=== PATIENT | female | born 1940 | race Caucasian/White ===

== ENCOUNTER 2020-05-19 22:55 | Inpatient (IN) ==
[2020-05-19] MEDS ORDERED: HALOPERIDOL LACTATE 5 MG/ML 1 ML VIAL IV STA ×2 (23:20→23:45)
[2020-05-19] MEDS ORDERED: HALOPERIDOL LACTATE 5 MG/ML 1 ML VIAL ONE (23:23)
[2020-05-19] MEDS ORDERED: MULTI-VITAMIN INFUSION 10 ML, THIAMINE HCL 100 MG, FOLIC ACID 1 MG in SODIUM CHLORIDE 0... IV ONE (23:23)
[2020-05-19 23:29] LABS: Basophils # (auto) 0.02 K/uL (0-0.2); Basophils % (auto) 0.2 %; Eosinophils # (auto) 0.02 K/uL (0-0.5); Eosinophils % (auto) 0.2 %; Hematocrit (blood only) 34.9 % (37-47); Hemoglobin 11.7 g/dL (12.0-16.0); Immature Granulocytes # (auto) 0.08 K/uL (0.00-0.02); Immature Granulocytes % (auto) 0.6 %; Lymphocytes # (auto) 1.05 K/uL (1.2-3.4); Lymphocytes % (auto) 8.1 %; Mean Corpuscular Hgb Conc 33.5 g/dL (32-36); Mean Corpuscular Volume 92.3 fL (80-100); Mean Platelet Volume 9.5 fL (7.4-10.4); Monocytes # (auto) 0.77 K/uL (0.11-0.59); Neutrophils # (auto) 10.99 K/uL (1.4-6.5); Neutrophils % (auto) 84.9 %; Platelet Count 301 K/uL (130-400); RDW Coefficient of Variation 14.2 % (11.5-14.5); RDW Standard Deviation 48.7 fL (36.4-46.3); Red Blood Count 3.78 M/uL (4.2-5.4); White Blood Count 12.93 K/uL (4.8-10.8)
[2020-05-19 23:38] LABS: Prothrombin Time 10.5 Seconds (9.0-12.0)
[2020-05-19 23:46] LABS: Albumin Level 3.8 gm/dl (3.4-5.0); BUN Creatinine Ratio 14.5 (10-20); Calcium 9.1 mg/dl (8.5-10.1); Creatinine Clr Calc Pharmacy 28.8 ml/min; Est GFR (African American) 42.4; Est GFR (Non-African American) 36.6; Magnesium 2.2 mg/dl (1.8-2.4); Potassium 4.1 mmol/L (3.5-5.1)
[2020-05-19 23:57] LABS: Albumin Globulin Ratio 1.1 (0.9-2); Bilirubin,Total 0.4 mg/dl (0.2-1); Globulin 3.4 gm/dl (2.5-4.0); Thyroid Stimulating Hormone 0.574 uIu/ml (0.300-4.500); Total Protein 7.2 gm/dl (6.4-8.2)
[2020-05-20] MEDS ORDERED: HALOPERIDOL LACTATE 5 MG/ML 1 ML VIAL IV STA (00:29)
[2020-05-20 00:38] LABS: Appearance Urine Clear (Clear); Bacteria Urine Automated Negative (Negative); Bilirubin Urine Negative (Negative); Blood Urine 2+ (Negative); Color Urine Yellow; Glucose Urine UA Negative (Negative); Ketones Urine Negative (Negative); Leukocyte Esterase Urine Negative (Negative); Nitrite Urine Negative (Negative); Protein Urine 1+ (Negative); RBC Urine Automated 0-4 /hpf (0-4); Urobilinogen Urine Negative (Negative); pH Urine 5.5 (4.5-7.5)
[2020-05-20 01:07] LABS: Troponin I 0.037 ng/ml (0-0.045)
[2020-05-20 01:22] LABS: Amphetamines+Metham, Urine Neg (Neg); Barbiturates, Urine Neg (Neg); Benzodiazepine, Urine Pos (Neg); Cocaine, Urine Neg (Neg); MDMA (Ecstacy), Urine Neg (Neg); Methadone, Urine Neg (Neg); Opiate, Urine Neg (Neg); Phencyclidine, Urine Neg (Neg)
[2020-05-20] MEDS ORDERED: LORazepam 2 MG/4 ML VIAL ONE (02:09)
[2020-05-20] MEDS ORDERED: LORazepam 1.5 MG/3 ML VIAL IV PRN (03:41)
[2020-05-20] MEDS ORDERED: HALOPERIDOL LACTATE 5 MG/ML 1 ML VIAL IM PRN (03:41)
[2020-05-20] MEDS ORDERED: NITROGLYCERIN SL 0.4 MG/TAB TAB SL PRN (03:41)
[2020-05-20] MEDS ORDERED: ONDANSETRON INJ 2 MG/ML 2 ML VIAL IV PRN (03:41)
--- NOTE | 2020-05-20 03:54 | History and Physical Report ---
DATE OF ADMISSION: 05/20/2020 CHIEF COMPLAINT: Altered mental status. HISTORY OF PRESENT ILLNESS: A 79-year-old female with past medical history significant for hypertension, history of non-ST elevated myocardial infarction, diverticulosis, GERD, generalized osteoarthritis, Alzheimer's disease without behavioral disturbance, hx of alcoholism, presents with altered mental status. The patient lives alone. Daughter checks her on a couple of times a week. Last time checked was Wednesday and she was doing fine. She did not find anything abnormal, everything was operations systems specialist but when the son called today phone was going into busy tone, so he asked the neighbors to check her.When neighbors checked her, she was found to be confused and the son went and saw her and he called the daughter that she could come and check on her and she seemed to be somewhat combative. EMS was called in and was brought in here. Last time the neighbor saw her well was last Wednesday. It took four people to hold her down and she received 2 mg IV Ativan en route. In the ER, she was very combative and received 3 doses of 2.5 mg IV Haldol. Currently, somewhat sedated, but she woke up and she says she wants to pee, speech was clear but mostly she was drowsy. Her initial CT of the head was okay. Chest x-ray, no obvious infiltrates seen. She is afebrile and hemodynamically stable. White count was 12.9, creatinine 1.3. Urinalysis negative for any infection. Urine drug screen is negative except for benzos, which she received in en route. Alcohol level is less than 3. As per daughter, she was drinking wine from last April to October, she used to drive herself and buy alcohol, but since November, she did not drink, she is pretty sure because she is not driving anymore and the daughter is only the crap game box person. As per the PCP notes, she was admitted to [facility] around January with a non-ST elevated MO and after that she went to short-term rehab in [facility], at that time she was started on Crestor, metoprolol succinate and losartan. Losartan and Lasix was stopped because of dizziness and low blood pressures and [id number] medications were stopped because she was taking lot of Tums and Pepto-Bismols. She also found with deficiency of thiamine, folic acid which is taking them,As per daughter, there was no recent fever, chills. She has no cough, no nausea, no complaints of any diarrhea. She is eating okay and otherwise she is ambulating okay before this incident happened and her only complaint is that she complaints of low back pain, shoulder pain, headaches and generalized body aches from her arthitis. ALLERGIES: LISINOPRIL, ADHESIVE TAPE, PROZAC, LACTULOSE. PAST MEDICAL HISTORY: As mentioned above. PAST SURGICAL HISTORY: Appendectomy, right carpal tunnel release, excision of the breast lesion, tubal ligation, cataracts of both the eyes, repair of the bladder defect, total abdominal hysterectomy with removal of tubes. MEDICATIONS: Currently the patient is on aspirin 81 mg p.o. daily, celecoxib 200 mg p.o. daily for pain, Aricept 10 mg p.o. daily, folic acid 1 mg p.o. daily, metoprolol succinate 50 mg p.o. daily, omeprazole 20 mg p.o. daily, Crestor 20 mg p.o. daily, vitamin B1 100 mg p.o. daily. FAMILY HISTORY: Significant for mother had blood disorder. Brother had thyroid cancer. Daughter has thyroid cancer. Father had lung cancer. Sister has lung and brain cancer. SOCIAL HISTORY: Currently and lives alone. Smoked for 10 years. Used to drink alcohol in the past as per daughter. Currently, she is not drinking. No drug use. REVIEW OF SYMPTOMS: Could not obtainable as the patient was agitated and got Ativan and Haldol PHYSICAL EXAMINATION: GENERAL: The patient is drowsy but when awake, she is able to move her extremities. VITAL SIGNS: Temperature afebrile, pulse 90, respiratory rate 20, blood pressure 175/92, oxygen 97% on room air. HEENT: Atraumatic. Could not examine the eyes. NECK: Seems supple, no neck masses seen. CARDIOVASCULAR: S1, S2 heard, regular rate and rhythm. RESPIRATORY SYSTEM: Normal AP diameter. No accessory muscle use. No wheezing, no crackles. ABDOMEN: Soft, bowel sounds present. No distention. CENTRAL NERVOUS SYSTEM: Drowsy. Moves extremities. EXTREMITIES: No edema, no erythema seen. LABORATORY DATA: WBC 12.9, hemoglobin 11.7, hematocrit 34.9, platelets 301. PT 13.5, INR 1. Sodium 142, potassium 4.1, chloride 108, bicarbonate 24, BUN 20, creatinine 1.37, serum glucose 105, lactate 1.5, calcium 9.1, magnesium 2.2, total bilirubin 0.4, AST 34, ALT 19, alkaline phosphatase 83, troponin I 0.037. TSH 0.5. Urinalysis, +2 blood, otherwise negative. Toxicology screen positive for benzos. Alcohol level less than 3. CT head, no acute findings seen. Chest x-ray, no obvious infiltrate seen. ASSESSMENT AND PLAN: This is a 79-year-old female who presents with altered mental status, agitation. 1. Altered mental status and agitation: Etiology unclear at this time. No obvious infectious process. Chest x-ray was okay. Urinalysis negative. There is some leukocytosis, but no fever. Lactic acid is normal,. The patient has Alzheimer's dementia, could be delirium, CT of head is okay, but will rule out any central causes with MRI scan. The patient has history of alcoholism, but as per daughter since November she is not drinking, she is no longer driving and her daughter is her only contact. Alcohol level was normal and urine drug screen was also negative, but patient receiving banana bag in the ER. We will continue with IV Ativan p.r.n. and also IV Haldol p.r.n. Follow the MRI scan. We will get ammonia level and ABG levels and consult psych and consult neurology in a.m. We will also do an EEG. 2. History of thiamine and folate deficiency: On p.o. at home. We will place on IV medications. 3. History of non-ST elevated myocardial infarction: We will follow the EKG. Troponin is negative. Will continue home medication of aspirin, Crestor and Toprol-XL. 4. Gastroesophageal reflux disease: Continue omeprazole. 5. Alzheimers' dementia. Continue Aricept. 6. Deep venous thrombosis prophylaxis: Sequential compression devices for now. 7. Disposition: Closely monitor in med/tele. Level 1 full code as per my discussion with the daughter. PT and OT prior to discharge. Social Service to help with discharge planning. [facility]
[2020-05-20] MEDS: D5W AND NSS 1,000 ML IV SCH ×2 (04:39→14:32)
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
--- NOTE | 2020-05-20 07:14 | CT Scan Report ---
HEAD CT NONCONTRAST CT DOSE: 1228.53 mGy.cm HISTORY: AMS, contusion on face TECHNIQUE: Multiaxial CT images of the head were performed without the use of intravenous contrast. A utomated exposure control was utilized for this study. A dose lowering technique was utilized adheri ng to the principles of ALARA. Comparison: None. Findings: The paranasal sinuses and mastoid air cells are clear. The calvarium and skull base are int act. There is no mass, hematoma, midline shift, acute infarct. White matter hypodensity is nonspecifi c but suggestive of microvascular ischemic change. The ventricles and sulci demonstrate mild age-rela sonu involutional changes. Impression: No acute intracranial abnormality. Atrophy and microvascular ischemic changes. ACT 112: Negative or not required by law. Electronically signed by: Marcus Cordero M.D. 05/20/2020 7:13 AM
--- NOTE | 2020-05-20 07:21 | XRay Report ---
XR chest 1V portable CLINICAL HISTORY: weakness dyspnea COMPARISON STUDY: No previous studies for comparison. FINDINGS: The bones soft tissues and hemidiaphragms are normal. The cardiomediastinal silhouette is n ormal. The lungs are clear. The pulmonary vasculature is normal. IMPRESSION: Negative chest. ACT 112: Negative or not required by law. The above report was generated using voice recognition software. It may contain grammatical, syntax or spelling errors. Electronically signed by: Alexander Murguia M.D. 05/20/2020 7:20 AM
[2020-05-20 08:56] LABS: Base Excess ABG 0.8 mEq/L (-9-1.8); HCO3 ABG 24 mmol/L (19-24); PCO2 ABG 35 mmHg (35-46); PO2 ABG 118 mmHg (80-95); pH ABG 7.46 (7.35-7.45)
[2020-05-20 09:00] LABS: Allen Test Pos (Pos)
[2020-05-20] MEDS: THIAMINE HCL 100 MG in SYRINGE 9 ML IV SCH (09:15)
[2020-05-20] MEDS: FOLIC ACID 1 MG in SYRINGE 9.8 ML IV SCH (09:15)
[2020-05-20 09:28] LABS: Basophils # (auto) 0.02 K/uL (0-0.2); Basophils % (auto) 0.3 %; Eosinophils # (auto) 0.17 K/uL (0-0.5); Eosinophils % (auto) 2.2 %; Hematocrit (blood only) 31.7 % (37-47); Hemoglobin 10.4 g/dL (12.0-16.0); Immature Granulocytes # (auto) 0.02 K/uL (0.00-0.02); Immature Granulocytes % (auto) 0.3 %; Lymphocytes # (auto) 1.57 K/uL (1.2-3.4); Lymphocytes % (auto) 19.9 %; Mean Corpuscular Hemoglobin 30.2 pg (25-34); Mean Corpuscular Hgb Conc 32.8 g/dL (32-36); Mean Corpuscular Volume 92.2 fL (80-100); Mean Platelet Volume 9.7 fL (7.4-10.4); Monocytes # (auto) 0.67 K/uL (0.11-0.59); Monocytes % (auto) 8.5 %; Neutrophils # (auto) 5.43 K/uL (1.4-6.5); Neutrophils % (auto) 68.8 %; Platelet Count 260 K/uL (130-400); RDW Coefficient of Variation 14.2 % (11.5-14.5); RDW Standard Deviation 47.7 fL (36.4-46.3); Red Blood Count 3.44 M/uL (4.2-5.4); White Blood Count 7.88 K/uL (4.8-10.8)
[2020-05-20] MEDS: DONEPEZIL HCL 10 MG TAB PO SCH (09:31)
[2020-05-20] MEDS: CEROVITE ADV FORMULA TAB PO SCH (09:31)
[2020-05-20] MEDS: METOPROLOL SUCC 50MG EXT REL TAB PO SCH (09:31)
[2020-05-20] MEDS: ROSUVASTATIN CALCIUM 20 MG TAB PO SCH (09:31)
[2020-05-20] MEDS: PANTOprazole 40 MG TAB PO SCH (09:31)
[2020-05-20 10:26] LABS: BUN Creatinine Ratio 14.7 (10-20); Calcium 8.5 mg/dl (8.5-10.1); Creatinine Clr Calc Pharmacy 40.8 ml/min; Est GFR (African American) 66.9; Est GFR (Non-African American) 57.7; Magnesium 2.1 mg/dl (1.8-2.4); Potassium 3.4 mmol/L (3.5-5.1)
--- NOTE | 2020-05-20 11:30 | Magnetic Resonance Report ---
MR brain wo con HISTORY: AMS/Agitation. etiology? TECHNIQUE: Multiplanar multisequence MRI of the brain was performed without the use of contrast. COMPARISON STUDY: None. FINDINGS: Limited study as the patient could not tolerate the entire procedure. Diffusion images show no evidence for an acute ischemic insult. Findings of generalized atrophy as well as generalized chronic small vessel change of aging. Ventricular system is midline. Internal auditory canals are unremarkable. IMPRESSION: Limited study showing no evidence for an acute ischemic process. Age-related atrophy and chronic smal l vessel change. ACT 112: Negative or not required by law. The above report was generated using voice recognition software. It may contain grammatical, syntax or spelling errors. Electronically signed by: Alexander Murguia M.D. 05/20/2020 11:29 AM
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
--- NOTE | 2020-05-20 14:18 | Electrocardiogram Report ---
Test Reason : Blood Pressure : / mmHG Vent. Rate : 082 BPM Atrial Rate : 082 BPM P-R Int : 186 ms QRS Dur : 076 ms QT Int : 394 ms P-R-T Axes : 066 034 057 degrees QTc Int : 460 ms Normal sinus rhythm Normal ECG No previous ECGs available Confirmed by Gume Moffett ([id number]) on 05/20/2020 2:18:19 PM Referred By: REFERRED SELF Confirmed By:Ken Moffett
--- NOTE | 2020-05-20 17:29 | Hospitalist Progress Note ---
Date of Service May 20, 2020 Assessment & Plan (1) Altered mental status: 1. Altered mental status and agitation metabolic encephalopathy hx Alzheimer's dementia, could be delirium, CT of head no acute change Right shoulder/right hip pain Ordered for x-ray of shoulder right hip and pelvis And is a poor historian, will need orthopod consult if fracture noted on extremities 2. History of thiamine and folate deficiency: ordered for replacement 3. History of non-ST elevated myocardial infarction: no acute coronary issues Troponin is negative. continue home medication of aspirin, Crestor and Toprol-XL. 4. Gastroesophageal reflux disease: Continue omeprazole. 5. Alzheimers' dementia. Continue Aricept. CODE STATUS: Full code Disposition: Pending Admission and Anticipated Discharge Date Admission Date: May 20, 2020 Subjective More awake and alert, oriented to person only No agitation or combativeness noted Complains of right shoulder pain, right hip pain worse with minimal movement Does not recall any fall or trauma Will order for x-ray of right hip and right shoulder to rule out any fracture Continue fall precaution Review of Systems Review of Systems: All systems reviewed & are unremarkable except as noted in HPI & below Musculoskeletal: + deformity (Is on movement of right shoulder with protrusion of bone noted ) Right shoulder/right hip pain Physical Exam Constitutional: WD/WN, vitals as above + ill appearing; no acute distress Eyes: PERRL, conjunctivae normal, anicteric sclerae ENMT: external ear and nose normal, oropharynx normal Neck: trachea midline, no thyromegaly Respiratory: normal respiratory effort, lungs clear to auscultation Cardiovascular: RRR, no murmur, no edema Gastrointestinal (Abdomen): Percussion/Palpation: + abdomen tender and abdomen soft Musculoskeletal: Pain deformity on right shoulder, severe pain on right hip with minimal movement Neurologic: PERRL, EOMI, accommodation nl, no face palsy, no dysarthria Psychiatric: Orientation: alert Oriented to person only Results & Data Results & Data ([facility]) Vital Signs (Past 12 Hours) Vital Signs Temp Pulse Pulse Resp BP Pulse Ox 05/20/20 15:31 74 05/20/20 11:08 72 18 133/68 97 05/20/20 07:36 71 05/20/20 07:10 36.7 C 72 19 171/84 H 100 (1) Altered mental status Altered mental status type: delirium Qualified Code(s): R41.0 - Disorientation, unspecified
--- NOTE | 2020-05-20 18:07 | Consultation Report ---
DATE OF CONSULTATION: 05/20/2020 This is a 79-year-old female. The consult was requested by Dr. Pichardo. CHIEF COMPLAINT: Altered mental status. HISTORY OF PRESENT ILLNESS: This is a 79-year-old woman with reported history of mild dementia on Aricept 10 mg daily as well as a history of hypertension, NSTEMI and a history of prior alcoholism on thiamine as well as folic acid, admitted to the hospital yesterday for altered mental status. The patient is currently a very poor historian and very hard of hearing, so the history of present illness is limited. On chart review, the patient lives alone and is checked on several times during the week by her daughter. She was last checked on Wednesday and seemed to be doing fine. The neighbors checked on her yesterday when she was found to be confused and agitated and somewhat combative at times. EMS was called and the patient was brought in. She did receive several doses of Ativan en route as well as several doses of Haldol for agitation. Workup in the ER was rather unremarkable, specifically for any signs of an infectious process or other metabolic etiology. The patient was admitted for further evaluation. Neurology was consulted due to the altered mental status. ALLERGIES: ALLERGIC TO LISINOPRIL, ADHESIVE TAPE, PROZAC AND LACTULOSE. PAST MEDICAL HISTORY: Alzheimer's dementia, hypertension, myocardial infarction, diverticulosis, generalized osteoarthritis, and gastroesophageal reflux disease. She also has a history of alcoholism, currently reported to be in remission. HOME MEDICATIONS: Includes Celebrex, donepezil 10 mg daily, folic acid 1 mg daily, metoprolol 50 mg daily, omeprazole 20 mg daily, Crestor 20 mg daily, and thiamine 100 mg daily. PAST SURGICAL HISTORY: She had an appendectomy, right carpal tunnel release surgery, excision of a breast lesion, tubal ligation, cataracts in both eyes, repair of a bladder defect, total abdominal hysterectomy with removal of tubes. FAMILY HISTORY: Her mother had bipolar mood disorder. Her brother had thyroid cancer. Her daughter had thyroid cancer. Her father had lung cancer. Sister had lung cancer as well as brain cancer. SOCIAL HISTORY: Reportedly, she is and lives alone. She is a former smoker, prior history of alcohol abuse, currently in remission. REVIEW OF SYSTEMS: Unable to obtain due to patient's current encephalopathy. PHYSICAL EXAMINATION: GENERAL: The patient appears chronically ill and is sleeping upon entering the room. She appears in no distress. VITAL SIGNS: Blood pressure 133/68, pulse of 74, respiratory rate is 18, temperature is 36.7, O2 sat 97% on room air. HEENT: Her head is atraumatic. Her eyes are midline and the conjunctiva did not appear injected. Her trachea is midline. NECK: Supple. CARDIOVASCULAR: Pulses appear regular. LUNGS: Respiratory rate is nonlabored. No cough noted. ABDOMEN: Soft and nondistended. SKIN: There was no rash or lesions noted. EXTREMITIES: There was no edema in both legs. NEUROLOGIC: The patient is lethargic and profoundly hard of hearing, wearing hearing aids. Her eyes are midline. Her extraocular muscles are intact. There is no nystagmus noticed. Her pupils were symmetric and reactive. She blinked to threat on confrontation. Her face was symmetric and her tongue was midline. Her speech was soft and nonfluent. Her speech was mildly dysarthric. She was following simple commands such as hold up your arms, stick out your tongue, how old are you. She was oriented to her age. Disoriented to place and time. She is moving all 4 extremities against gravity, although not comprehending for formal muscle strength testing. There was no tremor or myoclonic jerks noted. Her sensation was intact to noxious stimuli. She was able to cross midline. Gait examination was deferred due to altered mental status. DIAGNOSTIC TESTING: Labs WBC 7.88, hemoglobin 10.4, platelet count is 260. INR is 1.0. Sodium is 143, potassium 3.4, chloride 113, BUN is 14, creatinine 0.94. Lactate is 1.5, calcium 8.5, magnesium 2.1. Liver enzymes were normal. Ammonia was less than 10. Troponin was 0.037. TSH was normal. Urine showed 1+ protein, 2+ blood, few epithelial cells and negative for bacteria. Urine drug screen was positive for benzodiazepines. Her urine ethanol level was less than 3. IMAGING: She had an MRI of the brain which was limited due to patient motion, although did not show any evidence of an acute ischemic stroke. Age-related atrophy and chronic small vessel ischemic changes. Head CT noncontrast showed no acute intracranial abnormality, atrophy and microvascular ischemic changes. Chest x-ray was a negative chest examination. ASSESSMENT AND PLAN: A 79-year-old woman with a past medical history significant for dementia, presumed of the Alzheimer's type dementia, on Aricept 10 mg daily as well as prior history of alcohol abuse disorder on folic acid and thiamine, admitted with suspected progression of her Alzheimer dementia versus hyperactive delirium which would be supported by her nonfocal neurological examination, as well as her lab work, which does not show any signs of infectious etiology, as well as her recent MRI brain which, although limited did not show any evidence of an acute ischemic stroke. I would recommend and agree with continuing thiamine and folic acid given her prior history of chronic alcohol abuse disorder. It is not unreasonable to continue Aricept 10 mg daily. In regards to agitation or hyperactive delirium in the setting of dementia, Seroquel 25 mg twice a day or Depakote 250 mg twice daily, may be helpful for agitation. Otherwise, I would strongly encourage avoiding benzodiazepines due to paradoxical reaction or often agitation. Otherwise, I agree with psychiatric consultation for further recommendations in regards to mood stabilizing medications. PT, OT for rehabilitation needs. Otherwise, Neurology will sign off for now. Please consult me with any further questions or concerns.
[2020-05-20] MEDS ORDERED: QUETIAPINE FUMARATE 25 MG TABLET PO PRN (18:37)
--- NOTE | 2020-05-20 21:01 | XRay Report ---
SINGLE VIEW PELVIS; 2 VIEWS RIGHT HIP CLINICAL HISTORY: Atraumatic right hip pain. FINDINGS: An AP view of the pelvis with AP and frog-leg views of the right hip are obtained. No prior studies are available for comparison at the time of dictation. The skeletal structures are osteopeni c. There is no radiographic evidence of fracture involving the hips or bony pelvis. Mild degenerative joint space narrowing is seen in both hips. Degenerative sclerosis is noted in the sacroiliac joints and pubic symphysis. Lumbosacral spondylosis is partially visualized. The overlying soft tissues are normal as imaged. Numerous phleboliths are seen in the pelvis. IMPRESSION: 1. No acute bony abnormality is seen involving the hips or pelvis. 2. Osteopenia and degenerative change as above. Electronically signed by: Hemant Paula M.D. 05/20/2020 9:00 PM
--- NOTE | 2020-05-20 21:03 | XRay Report ---
RIGHT SHOULDER 3 VIEWS CLINICAL HISTORY: Right shoulder pain. FINDINGS: 3 views of the right shoulder are obtained. No prior studies are available for comparison a t the time of dictation. The skeletal structures are osteopenic. No fracture or dislocation is identi fied. Productive degenerative change is seen at the acromioclavicular joint. Advanced osteoarthritic change is seen the glenohumeral articulation. Superior subluxation of the humeral head suggests chron ic rotator cuff injury. Soft tissue edema and a bulge is seen superior to the acromioclavicular joint . The visualized right lung parenchyma appears clear. IMPRESSION: 1. No acute bony abnormality is identified. 2. Osteopenia and degenerative change as above. 3. Soft tissue edema and a bulge is seen at superior to the AC joint. Clinical correlation will be re quired. Electronically signed by: Hemant Paula M.D. 05/20/2020 9:02 PM
[2020-05-20] MEDS: HydrALAZINE HCL 20 MG/ML VIAL IV PRN (21:17)
[2020-05-20] MEDS: ACETAMINOPHEN 325 MG TAB PO PRN (22:49)
[2020-05-21] MEDS: FOLIC ACID 1 MG in SYRINGE 9.8 ML IV SCH (08:53)
[2020-05-21] MEDS: THIAMINE HCL 100 MG in SYRINGE 9 ML IV SCH (08:53)
[2020-05-21] MEDS: PANTOprazole 40 MG TAB PO SCH (08:54)
[2020-05-21] MEDS: CEROVITE ADV FORMULA TAB PO SCH (08:54)
[2020-05-21] MEDS: DONEPEZIL HCL 10 MG TAB PO SCH (08:54)
[2020-05-21] MEDS: ROSUVASTATIN CALCIUM 20 MG TAB PO SCH (08:54)
[2020-05-21] MEDS: METOPROLOL SUCC 50MG EXT REL TAB PO SCH (08:54)
[2020-05-21 11:47] LABS: BUN Creatinine Ratio 9.8 (10-20); Calcium 8.6 mg/dl (8.5-10.1); Creatinine Clr Calc Pharmacy 43.8 ml/min; Est GFR (African American) 74.5; Est GFR (Non-African American) 64.3; Potassium 4.1 mmol/L (3.5-5.1)
--- NOTE | 2020-05-21 15:07 | Electroencephalogram ---
EEG Procedure Note Date of Service May 21, 2020 Start / End Times Start Time: 08:24 End Time: 08:[address] Calhoun History a 79-year-old woman with seizure. EEG performed for evaluation of epileptiform activity. Home Medication List Home Medications Medication Instructions Recorded Confirmed Type celecoxib 200 mg PO DAILY 05/19/20 05/20/20 History donepezil 10 mg PO DAILY 05/19/20 05/20/20 History metoprolol succinate 50 mg PO DAILY 05/19/20 05/20/20 History omeprazole 20 mg PO DAILY 05/19/20 05/20/20 History folic acid 1 mg PO DAILY 05/20/20 05/20/20 History rosuvastatin 20 mg PO DAILY 05/20/20 05/20/20 History thiamine HCl (vitamin B1) 100 mg PO DAILY 05/20/20 05/20/20 History Inpatient Medication List Acetaminophen (Tylenol) 650 mg PO Q4H PRN PRN Reason: Pain or Fever Stop: 06/19/20 03:40 Last Admin: 05/20/20 22:49 Dose: 650 mg Documented by: [id number] Donepezil HCl (Aricept) 10 mg PO DAILY [facility] Stop: 06/19/20 08:59 Last Admin: 05/21/20 08:54 Dose: 10 mg Documented by: [id number] Admin: 05/20/20 09:31 Dose: Not Given Documented by: [id number] Hydralazine HCl (Hydralazine Hcl) 5 mg IV Q6H PRN PRN Reason: Hypertension Stop: 06/19/20 20:45 Last Admin: 05/20/20 21:17 Dose: 5 mg Documented by: [id number] Metoprolol Succinate (Toprol Xl) 50 mg PO DAILY [facility] Stop: 06/19/20 08:59 Last Admin: 05/21/20 08:54 Dose: 50 mg Documented by: [id number] Admin: 05/20/20 09:31 Dose: Not Given Documented by: [id number] Multivitamins/Minerals (Multivitamin W/ Minerals Tab) 1 tab PO QAM [facility] Stop: 06/19/20 08:59 Last Admin: 05/21/20 08:54 Dose: 1 tab Documented by: [id number] Admin: 05/20/20 09:31 Dose: Not Given Documented by: [id number] Pantoprazole Sodium (Protonix) 40 mg PO DAILY [facility] Stop: 06/19/20 08:59 Last Admin: 05/21/20 08:54 Dose: 40 mg Documented by: [id number] Admin: 05/20/20 09:31 Dose: Not Given Documented by: [id number] Rosuvastatin Calcium (Crestor) 20 mg PO DAILY [facility] Stop: 06/19/20 08:59 Last Admin: 05/21/20 08:54 Dose: 20 mg Documented by: [id number] Admin: 05/20/20 09:31 Dose: Not Given Documented by: [id number] Discontinued Medications Haloperidol Lactate (Haldol) 2.5 mg IV NOW STA Stop: 05/19/20 23:21 Last Admin: 05/19/20 23:25 Dose: 2.5 mg Documented by: [id number] Haloperidol Lactate (Haldol) Confirm Administered Dose 5 mg .ROUTE .STK-MED ONE Stop: 05/19/20 23:24 Last Admin: 05/20/20 01:03 Dose: Not Given Documented by: [id number] Haloperidol Lactate (Haldol) 2.5 mg IV NOW STA Stop: 05/19/20 23:46 Last Admin: 05/20/20 00:01 Dose: 2.5 mg Documented by: [id number] Haloperidol Lactate (Haldol) 2.5 mg IV NOW STA Stop: 05/20/20 00:30 Last Admin: 05/20/20 02:13 Dose: 2.5 mg Documented by: [id number] Multivitamins 10 ml/ Thiamine HCl 100 mg/ Folic Acid 1 mg/Sodium Chloride 1,011.2 mls @ 1,011.2 mls/hr IV .Q1H ONE Stop: 05/20/20 00:22 Last Infusion: 05/20/20 01:12 Dose: 0 mls/hr Documented by: [id number] Admin: 05/20/20 00:08 Dose: 1,011.2 mls/hr Documented by: [id number] Dextrose/Sodium Chloride (D5w And Nss) 1,000 mls @ 100 mls/hr IV .Q10H [facility] Stop: 06/19/20 03:40 Last Infusion: 05/20/20 18:39 Dose: 0 mls/hr Documented by: [id number] Admin: 05/20/20 14:32 Dose: 100 mls/hr Documented by: [id number] Infusion: 05/20/20 14:32 Dose: 100 mls/hr Documented by: [id number] Admin: 05/20/20 04:39 Dose: 100 mls/hr Documented by: [id number] Thiamine HCl 100 mg/ Syringe 10 mls @ 2 mls/min IV QAM [facility] Stop: 06/19/20 08:59 Last Admin: 05/21/20 08:53 Dose: 2 mls/min Documented by: [id number] Admin: 05/20/20 09:15 Dose: 2 mls/min Documented by: [id number] Folic Acid 1 mg/ Syringe 10 mls @ 5 mls/min IV QAM [facility] Stop: 06/19/20 08:59 Last Admin: 05/21/20 08:53 Dose: 5 mls/min Documented by: [id number] Admin: 05/20/20 09:15 Dose: 5 mls/min Documented by: [id number] Lorazepam (Ativan) Confirm Administered Dose 2 mg .ROUTE .[employer] ONE Stop: 05/20/20 02:10 Last Increment: 05/20/20 02:14 Dose: 1.5 mg Documented by: [id number] Description This is a 21 electrode EEG with a single channel dedicated to limited EKG. The electrodes were placed in accordance with the International 10-20 system. REPORT: At the onset of the EEG the patient is awake. The background is symmetric. The posterior dominant rhythm is 7 Hz. There is a normal anterior to posterior gradient with low amplitude beta activity in the frontal head regions. Drowsiness is characterized by increased theta activity with intermixed delta activity. There are periods of intermixed myogenic artifact from patient head motion. Photic stimulation does not induce any additional abnormalities. No stage 2 sleep transients are seen. IMPRESSION: This is an abnormal awake and drowsy routine EEG due to mild background slowing suggestive of a mild nonspecific encephalopathy. No electrographic seizures or epileptiform discharges are recorded.
--- NOTE | 2020-05-21 17:43 | Hospitalist Progress Note ---
Date of Service May 21, 2020 Assessment & Plan (1) Altered mental status: Altered mental status and agitation metabolic encephalopathy in the setting of dehydration, acute renal failure, low potassium awake and alert today not combative or agitated Dehydration corrected with IV fluids kidney function returned to baseline Discussed over phone with daughter, patient lives at home independently, Family has not noted any cognitive decline Patient went to [employer] with her daughter, last Wednesday 2 days later patient was admitted with acute confusion, dehydration Expecting mental status gradually to improved to baseline after dehydration is corrected Continue to monitor Appreciate input from psychiatry and neurology- Right shoulder/right hip pain x-ray of shoulder right hip and pelvis: Moderate DJD Daughter updated patient had diagnosis of arthritis which has been chronic ongoing Received physical therapy as an outpatient History of thiamine and folic deficiency Continue oral supplements Gastroesophageal reflux disease: Continue omeprazole. Alzheimers' dementia. Continue Aricept. CODE STATUS: Full code Disposition: Patient lives alone, was independent in her ADLs, Daughter checks on her to 2-3 times a week/does her groceries For PT and OT evaluation Daughter is open for rehab if significant functional decline noted Service following for discharge planning Admission and Anticipated Discharge Date Admission Date: May 20, 2020 Subjective awake and alert today 1:1 sitter needed as pt tried to climb out of bed , high fall risk no combativeness or agitation very hard of hearing unable to follow command says her right hip and shoulder pain is bothering her and always did when asked how she was managing to walk at home while being alone she started to talk about her Late , how they traveled , did hiking aware that she is in hospital does not recall why she came to hospital vials stable no fever or chills Review of Systems Review of Systems: All systems reviewed & are unremarkable except as noted in HPI & below Physical Exam Constitutional: WD/WN, vitals as above + ill appearing; no acute distress Eyes: PERRL, conjunctivae normal, anicteric sclerae ENMT: external ear and nose normal, oropharynx normal Neck: trachea midline, no thyromegaly Respiratory: normal respiratory effort, lungs clear to auscultation Cardiovascular: RRR, no murmur, no edema Gastrointestinal (Abdomen): Percussion/Palpation: abdomen soft Neurologic: PERRL, EOMI, accommodation nl, no face palsy, no dysarthria (very hard of hearing , makes it difficult to communicate) Psychiatric: Orientation: alert, oriented to person and oriented to place Results & Data Results & Data ([facility]) Vital Signs (Past 12 Hours) Vital Signs Temp Pulse Pulse Resp BP Pulse Ox 05/21/20 14:39 37.3 C 70 19 163/92 H 97 05/21/20 11:21 37.1 C 77 18 164/95 H 97 05/21/20 11:18 37.2 C 72 18 148/83 H 95 05/21/20 07:25 81 05/21/20 07:00 37.1 C 91 H 18 151/75 H 95 (1) Altered mental status Altered mental status type: delirium Qualified Code(s): R41.0 - Disorientation, unspecified
[2020-05-22 01:20] LABS: 7-Aminoclonaz, Confirm NEGATIVE ng/mL (<25); Hydro-Alp Ur, GC/MS NEGATIVE ng/mL (<25); Hydroxyethylflurazepam, Conf NEGATIVE ng/mL (<50); Hydroxymidazolam Ur, GC/MS 324 ng/mL (<50); Hydroxytriazolam NEGATIVE ng/mL (<50); Lorazepam, Ur GC/MS 93 ng/mL (<50); Nordiazepam, Confirm NEGATIVE ng/mL (<50); Oxazepam Ur, GC/MS NEGATIVE ng/mL (<50); Temazepam, Confirm NEGATIVE ng/mL (<50)
[2020-05-22] MEDS: FOLIC ACID 1 MG TAB PO SCH (09:41)
[2020-05-22] MEDS: CEROVITE ADV FORMULA TAB PO SCH (09:42)
[2020-05-22] MEDS: ROSUVASTATIN CALCIUM 20 MG TAB PO SCH (09:42)
[2020-05-22] MEDS: METOPROLOL SUCC 50MG EXT REL TAB PO SCH (09:42)
[2020-05-22] MEDS: DONEPEZIL HCL 10 MG TAB PO SCH (09:42)
[2020-05-22] MEDS: THIAMINE HCL 100 MG TAB PO SCH (09:42)
[2020-05-22] MEDS: PANTOprazole 40 MG TAB PO SCH (09:43)
--- NOTE | 2020-05-22 10:46 | Communication Note ---
Date of Service: May 22, 2020 Numerous attempts were made to gather collateral information from patient's daughter regarding any psychiatric history or significant mood changes which may correlate with patient's altered mental status on admission. Several voicemails were left. On 05/22/2020, our psychiatric nurse liaison was able to speak with the patient's daughter (Jenifer). Please see psychiatric liaison's note for additional details. Daughter did report that the change observed in her mother was rather acute. She does state there has been a noticeable change in the patient's mood related to the of the patient's 12 years ago, but that there was no significant observed changed in mood prior to patient's hospital presentation. Pt does have a reported history of alcohol dependence/abuse as well, but has reportedly been sober since October 2019. Jenifer denied concern for increased depression/anxiety, and no previous signs of symptoms of psychosis. Upon review of this information and given the sudden onset in MS change, it seems less likely that patient's presentation is directly related to a primary psychiatric diagnosis such as depression with psychotic features. Review of patient's chart indicates that patient has been improving with regard to mental status and there are no recently documented concerns related to agitation/combative behavior. Pt has not required prn medication for behavioral concerns since her initial presentation. Agree with hospitalist impression that AMS and agitation are most consistent with metabolic encephalopathy in the setting of dehydration and acute renal failure - with contributing factors of dementia, advanced age, history of alcohol abuse, and other medical conditions. No additional psychiatric recommendations at this time. Please reach out to our service with any additional questions or updates.
--- NOTE | 2020-05-22 17:30 | Hospitalist Progress Note ---
Date of Service May 22, 2020 Assessment & Plan (1) Altered mental status: Present o admission with confusion and agitation Mostly due to metabolic encephalopathy in the setting of dehydration, acute renal failure CT head showed no acute intracranial abnormality. MRI brain showed no evidence for an acute ischemic process. Received IV hydration Neuro consulted recommended to continue thiamine and folic acid No further neuro testing Psych consulted Symptoms less likely to be related with a primary psychiatric disorder as per psych No additional psychiatric recommendations at this time. Will avoid any Benzo Resolved Right shoulder/right hip pain x-ray of shoulder right hip and pelvis: Moderate DJD Daughter updated patient had diagnosis of arthritis which has been chronic ongoing Received physical therapy as an outpatient History of thiamine and folic deficiency Continue oral supplements Gastroesophageal reflux disease: Continue omeprazole. Alzheimers' dementia. Continue Aricept. CODE STATUS: Full code Disposition PT recommended inpatient rehab Waiting for placement to rehab Admission and Anticipated Discharge Date Admission Date: May 20, 2020 Subjective Pt was seen and examined Lying in bed with no distress with daughter at bedside Daughter said that pt mental status is back to normal Pt denies any chest pain, palpitation, dizziness and SOB Physical Exam Physical Exam: General- No acute distress Head- atraumatic Eyes- PERRL, EOMI, ENT- Decrease hearing function Neck- supple, no JVD Lungs- clear to auscultation Heart- regular rhythm; no murmur Abdomen- normal bowel sounds, soft, nontender Extremities- no calf tenderness Neuro- alert, oriented x 3; PERRL, EOMI; no facial palsy; no dysarthria Skin- warm & dry Results & Data Results & [facility] Vital Signs (Past 12 Hours) Vital Signs Temp Pulse Resp BP BP Pulse Ox 05/22/20 15:51 36.6 C 61 18 161/90 H 97 05/22/20 07:19 37.3 C 68 18 125/83 93 (1) Altered mental status Altered mental status type: delirium Qualified Code(s): R41.0 - Disorientation, unspecified
[2020-05-23] MEDS: HydrALAZINE HCL 20 MG/ML VIAL IV PRN (00:25)
[2020-05-23] MEDS: PANTOprazole 40 MG TAB PO SCH (07:24)
[2020-05-23] MEDS: METOPROLOL SUCC 50MG EXT REL TAB PO SCH (07:25)
[2020-05-23] MEDS: ROSUVASTATIN CALCIUM 20 MG TAB PO SCH (07:25)
[2020-05-23] MEDS: CEROVITE ADV FORMULA TAB PO SCH (07:26)
[2020-05-23] MEDS: THIAMINE HCL 100 MG TAB PO SCH (07:26)
[2020-05-23] MEDS: FOLIC ACID 1 MG TAB PO SCH (07:26)
[2020-05-23] MEDS: DONEPEZIL HCL 10 MG TAB PO SCH (07:26)
--- NOTE | 2020-05-23 19:45 | Hospitalist Progress Note ---
Date of Service May 23, 2020 Assessment & Plan (1) Altered mental status: Present o admission with confusion and agitation Mostly due to metabolic encephalopathy in the setting of dehydration, acute renal failure CT head showed no acute intracranial abnormality. MRI brain showed no evidence for an acute ischemic process. Received IV hydration Neuro consulted recommended to continue thiamine and folic acid No further neuro testing Psych consulted Symptoms less likely to be related with a primary psychiatric disorder as per psych No additional psychiatric recommendations at this time. Will avoid any Benzo Resolved Right shoulder/right hip pain x-ray of shoulder right hip and pelvis: Moderate DJD Daughter updated patient had diagnosis of arthritis which has been chronic ongoing Received physical therapy as an outpatient History of thiamine and folic deficiency Continue oral supplements Gastroesophageal reflux disease: Continue omeprazole. Alzheimers' dementia. Continue Aricept. CODE STATUS: Full code Disposition PT recommended inpatient rehab Waiting for placement to rehab Admission and Anticipated Discharge Date Admission Date: May 20, 2020 Subjective Pt was seen and examined Lying in bed with no distress Pt said that she feels much better She said that she does have some tenderness around her hips and lower back area She is able to converse and make sense I spoke to daughter over phone this morning and was concern about NPH Reassuring pt that patient mental status back to normal and CT head showed no evidence of ventricles enlargement, so is less likely to be NPH since pt back to normal without any procedure Denies any chest pain, palpitation, dizziness and SOB Physical Exam Physical Exam: General- No acute distress Head- atraumatic Eyes- PERRL, EOMI, ENT- Decrease hearing function Neck- supple, no JVD Lungs- clear to auscultation Heart- regular rhythm; no murmur Abdomen- normal bowel sounds, soft, nontender Extremities- no calf tenderness Neuro- alert, oriented x 3; PERRL, EOMI; no facial palsy; no dysarthria Skin- warm & dry Results & Data Results & Data ([facility]) Vital Signs (Past 12 Hours) Vital Signs Temp Pulse Resp BP BP Pulse Ox 05/23/20 19:19 37 C 75 18 151/91 H 97 05/23/20 15:51 36.9 C 72 18 124/89 97 (1) Altered mental status Altered mental status type: delirium Qualified Code(s): R41.0 - Disorie ntation, unspecified
[2020-05-24] MEDS: CEROVITE ADV FORMULA TAB PO SCH (08:14)
[2020-05-24] MEDS: ROSUVASTATIN CALCIUM 20 MG TAB PO SCH (08:14)
[2020-05-24] MEDS: PANTOprazole 40 MG TAB PO SCH (08:14)
[2020-05-24] MEDS: METOPROLOL SUCC 50MG EXT REL TAB PO SCH (08:14)
[2020-05-24] MEDS: DONEPEZIL HCL 10 MG TAB PO SCH (08:14)
[2020-05-24] MEDS: THIAMINE HCL 100 MG TAB PO SCH (08:14)
[2020-05-24] MEDS: FOLIC ACID 1 MG TAB PO SCH (08:14)
[2020-05-24] MEDS ORDERED: LIDOCAINE 4% CREAM 15 GM TUBE EXT PRN (18:46)
--- NOTE | 2020-05-24 18:46 | Hospitalist Progress Note ---
Date of Service May 24, 2020 Assessment & Plan (1) Altered mental status: Present o admission with confusion and agitation Mostly due to metabolic encephalopathy in the setting of dehydration, acute renal failure CT head showed no acute intracranial abnormality. MRI brain showed no evidence for an acute ischemic process. Received IV hydration Neuro consulted recommended to continue thiamine and folic acid No further neuro testing Psych consulted Symptoms less likely to be related with a primary psychiatric disorder as per psych No additional psychiatric recommendations at this time. Continue allie avoid any Benzo Resolved Right shoulder/right hip pain x-ray of shoulder right hip and pelvis: Moderate DJD Daughter updated patient had diagnosis of arthritis which has been chronic ongoing Received physical therapy as an outpatient History of thiamine and folic deficiency Continue oral supplements Gastroesophageal reflux disease: Continue omeprazole. Alzheimers' dementia. Continue Aricept. CODE STATUS: Full code Disposition PT recommended inpatient rehab Waiting for placement to rehab Admission and Anticipated Discharge Date Admission Date: May 20, 2020 Subjective Pt was seen and examined Lying in bed with no distress Pt said that pain a little better today Denies any chest pain, palpitation and SOB Physical Exam Physical Exam: General- No acute distress Head- atraumatic Eyes- PERRL, EOMI, ENT- Decrease hearing function Neck- supple, no JVD Lungs- clear to auscultation Heart- regular rhythm; no murmur Abdomen- normal bowel sounds, soft, nontender Extremities- no calf tenderness Neuro- alert, oriented x 3; PERRL, EOMI; no facial palsy; no dysarthria Skin- warm & dry Results & Data Results & Data ([facility]) Vital Signs (Past 12 Hours) Vital Signs Temp Pulse Resp BP BP Pulse Ox 05/24/20 15:47 36.8 C 63 18 119/76 96 05/24/20 07:00 36.9 C 84 16 147/84 H 96 (1) Altered mental status Altered mental status type: delirium Qualified Code(s): R41.0 - Disorientation, unspecified
[2020-05-25] MEDS: DONEPEZIL HCL 10 MG TAB PO SCH (08:37)
[2020-05-25] MEDS: FOLIC ACID 1 MG TAB PO SCH (08:37)
[2020-05-25] MEDS: THIAMINE HCL 100 MG TAB PO SCH (08:37)
[2020-05-25] MEDS: ROSUVASTATIN CALCIUM 20 MG TAB PO SCH (08:37)
[2020-05-25] MEDS: CEROVITE ADV FORMULA TAB PO SCH (08:37)
[2020-05-25] MEDS: METOPROLOL SUCC 50MG EXT REL TAB PO SCH (08:38)
[2020-05-25] MEDS: PANTOprazole 40 MG TAB PO SCH (08:38)
--- NOTE | 2020-05-25 19:09 | Hospitalist Progress Note ---
Date of Service May 25, 2020 Assessment & Plan (1) Altered mental status: Present o admission with confusion and agitation Mostly due to metabolic encephalopathy in the setting of dehydration, acute renal failure CT head showed no acute intracranial abnormality. MRI brain showed no evidence for an acute ischemic process. Received IV hydration Neuro consulted recommended to continue thiamine and folic acid No further neuro testing Psych consulted Symptoms less likely to be related with a primary psychiatric disorder as per psych No additional psychiatric recommendations at this time. Continue allie avoid any Benzo Resolved HTN BP fluctuated Continue metoprolol 50mg daily Continue monitor BP Right shoulder/right hip pain x-ray of shoulder right hip and pelvis: Moderate DJD Daughter updated patient had diagnosis of arthritis which has been chronic ongoing Received physical therapy as an outpatient History of thiamine and folic deficiency Continue oral supplements Gastroesophageal reflux disease: Continue omeprazole. Alzheimers' dementia. Continue Aricept. CODE STATUS: Full code Disposition PT recommended inpatient rehab Waiting for placement to rehab Admission and Anticipated Discharge Date Admission Date: May 20, 2020 Subjective Pt was seen and examined Lying in bed with no distress watching TV Pt said that the Lidocaine cream helps a little She said that has a good appetite Denies any chest pain, palpitation, dizziness and SOB Physical Exam Physical Exam: General- No acute distress Head- atraumatic Eyes- PERRL, EOMI, ENT- Decrease hearing function Neck- supple, no JVD Lungs- clear to auscultation Heart- regular rhythm; no murmur Abdomen- normal bowel sounds, soft, nontender Extremities- no calf tenderness Neuro- alert, oriented x 3; PERRL, EOMI; no facial palsy; no dysarthria Skin- warm & dry (1) Altered mental status Altered mental status type: delirium Qualified Code(s): R41.0 - Disorientation, unspecified
[2020-05-26] MEDS: DONEPEZIL HCL 10 MG TAB PO SCH (08:04)
[2020-05-26] MEDS: THIAMINE HCL 100 MG TAB PO SCH (08:04)
[2020-05-26] MEDS: PANTOprazole 40 MG TAB PO SCH (08:04)
[2020-05-26] MEDS: METOPROLOL SUCC 50MG EXT REL TAB PO SCH (08:04)
[2020-05-26] MEDS: ROSUVASTATIN CALCIUM 20 MG TAB PO SCH (08:04)
[2020-05-26] MEDS: CEROVITE ADV FORMULA TAB PO SCH (08:04)
[2020-05-26] MEDS: FOLIC ACID 1 MG TAB PO SCH (08:04)
--- NOTE | 2020-05-26 16:00 | Hospitalist Progress Note ---
Date of Service May 26, 2020 Assessment & Plan (1) Altered mental status: Present o admission with confusion and agitation Mostly due to metabolic encephalopathy in the setting of dehydration, acute renal failure CT head showed no acute intracranial abnormality. MRI brain showed no evidence for an acute ischemic process. Received IV hydration Neuro consulted recommended to continue thiamine and folic acid No further neuro testing Psych consulted Symptoms less likely to be related with a primary psychiatric disorder as per psych No additional psychiatric recommendations at this time. Continue allie avoid any Benzo Resolved HTN BP stable Continue metoprolol 50mg daily Continue monitor BP Right shoulder Right hip pain x-ray of shoulder right hip and pelvis: Moderate DJD Daughter updated patient had diagnosis of arthritis which has been chronic ongoing Received physical therapy as an outpatient History of thiamine and folic deficiency Continue oral supplements Gastroesophageal reflux disease: Continue omeprazole. Alzheimers' dementia. Continue Aricept. CODE STATUS: Full code Disposition PT recommended inpatient rehab Waiting for placement to rehab Admission and Anticipated Discharge Date Admission Date: May 20, 2020 Subjective Pt was seen and examined Lying in bed with no distress Pt said that she feels oK Denies any new complaint Physical Exam Physical Exam: General- No acute distress Head- atraumatic Eyes- PERRL, EOMI, ENT- Decrease hearing function Neck- supple, no JVD Lungs- clear to auscultation Heart- regular rhythm; no murmur Abdomen- normal bowel sounds, soft, nontender Extremities- no calf tenderness Neuro- alert, oriented x 3; PERRL, EOMI; no facial palsy; no dysarthria Skin- warm & dry Results & Data Results & Data ([facility]) Vital Signs (Past 12 Hours) Vital Signs Temp Pulse Resp BP Pulse Ox 05/26/20 15:00 36.7 C 66 16 113/73 96 05/26/20 07:00 36.8 C 66 18 135/62 98 (1) Altered mental status Altered mental status type: delirium Qualified Code(s): R41.0 - Disorientation, unspecified
[2020-05-27] MEDS: PANTOprazole 40 MG TAB PO SCH (08:05)
[2020-05-27] MEDS: DONEPEZIL HCL 10 MG TAB PO SCH (08:05)
[2020-05-27] MEDS: FOLIC ACID 1 MG TAB PO SCH (08:05)
[2020-05-27] MEDS: METOPROLOL SUCC 50MG EXT REL TAB PO SCH (08:05)
[2020-05-27] MEDS: ROSUVASTATIN CALCIUM 20 MG TAB PO SCH (08:06)
[2020-05-27] MEDS: CEROVITE ADV FORMULA TAB PO SCH (08:06)
[2020-05-27] MEDS: THIAMINE HCL 100 MG TAB PO SCH (08:06)
[2020-05-27] MEDS: ACETAMINOPHEN 325 MG TAB PO PRN (12:14)
--- NOTE | 2020-05-27 18:41 | Hospitalist Progress Note ---
Date of Service May 27, 2020 Assessment & Plan (1) Altered mental status: Present o admission with confusion and agitation Mostly due to metabolic encephalopathy in the setting of dehydration, acute renal failure CT head showed no acute intracranial abnormality. MRI brain showed no evidence for an acute ischemic process. Received IV hydration Neuro consulted recommended to continue thiamine and folic acid No further neuro testing Psych consulted Symptoms less likely to be related with a primary psychiatric disorder as per psych No additional psychiatric recommendations at this time. Continue allie avoid any Benzo Resolved HTN BP stable Continue metoprolol 50mg daily Continue monitor BP Right shoulder Right hip pain x-ray of shoulder right hip and pelvis: Moderate DJD Daughter updated patient had diagnosis of arthritis which has been chronic ongoing Received physical therapy as an outpatient History of thiamine and folic deficiency Continue oral supplements Gastroesophageal reflux disease: Continue omeprazole. Alzheimers' dementia. Continue Aricept. CODE STATUS: Full code Disposition Will discharge home tomorrow with home health services Admission and Anticipated Discharge Date Admission Date: May 20, 2020 Subjective Pt was seen and examined Lying in bed with no distress watching TV Pt said that she does have some tenderness She would like her IV access to remove Denies any chest pain, palpitation, dizziness and SOB Physical Exam Physical Exam: General- No acute distress Head- atraumatic Eyes- PERRL, EOMI, ENT- Decrease hearing function Neck- supple, no JVD Lungs- clear to auscultation Heart- regular rhythm; no murmur Abdomen- normal bowel sounds, soft, nontender Extremities- no calf tenderness Neuro- alert, oriented x 3; PERRL, EOMI; no facial palsy; no dysarthria Skin- warm & dry Results & Data Results & Data ([facility]) Vital Signs (Past 12 Hours) Vital Signs Temp Pulse Resp BP Pulse Ox 05/27/20 15:14 36.7 C 60 16 161/84 H 98 (1) Altered mental status Altered mental status type: delirium Qualified Code(s): R41.0 - Disorientation, unspecified
[2020-05-28] MEDS: CEROVITE ADV FORMULA TAB PO SCH (08:41)
[2020-05-28] MEDS: ROSUVASTATIN CALCIUM 20 MG TAB PO SCH (08:41)
[2020-05-28] MEDS: ACETAMINOPHEN 325 MG TAB PO PRN (08:41)
[2020-05-28] MEDS: DONEPEZIL HCL 10 MG TAB PO SCH (08:42)
[2020-05-28] MEDS: PANTOprazole 40 MG TAB PO SCH (08:42)
[2020-05-28] MEDS: THIAMINE HCL 100 MG TAB PO SCH (08:42)
[2020-05-28] MEDS: FOLIC ACID 1 MG TAB PO SCH (08:42)
[2020-05-28] MEDS: METOPROLOL SUCC 50MG EXT REL TAB PO SCH (08:42)
--- NOTE | 2020-05-28 11:24 | Discharge Summary ---
Date of Service May 28, 2020 Admission HPI Per Admitting Provider CHIEF COMPLAINT: Altered mental status. HISTORY OF PRESENT ILLNESS: A 79-year-old female with past medical history significant for hypertension, history of non-ST elevated myocardial infarction, diverticulosis, GERD, generalized osteoarthritis, Alzheimer's disease without behavioral disturbance, hx of alcoholism, presents with altered mental status. The patient lives alone. Daughter checks her on a couple of times a week. Last time checked was Wednesday and she was doing fine. She did not find anything abnormal, everything was drawing frame tender but when the son called today phone was going into busy tone, so he asked the neighbors to check her.When neighbors checked her, she was found to be confused and the son went and saw her and he called the daughter that she could come and check on her and she seemed to be somewhat combative. EMS was called in and was brought in here. Last time the neighbor saw her well was last Wednesday. It took four people to hold her down and she received 2 mg IV Ativan en route. In the ER, she was very combative and received 3 doses of 2.5 mg IV Haldol. Currently, somewhat sedated, but she woke up and she says she wants to pee, speech was clear but mostly she was drowsy. Her initial CT of the head was okay. Chest x-ray, no obvious infiltrates seen. She is afebrile and hemodynamically stable. White count was 12.9, creatinine 1.3. Urinalysis negative for any infection. Urine drug screen is negative except for benzos, which she received in en route. Alcohol level is less than 3. As per daughter, she was drinking wine from last April to October, she used to drive herself and buy alcohol, but since November, she did not drink, she is pretty sure because she is not driving anymore and the daughter is only the supervisor contact and service clerks. As per the PCP notes, she was admitted to [facility] around January with a non-ST elevated UT and after that she went to short-term rehab in [facility], at that time she was started on Crestor, metoprolol succinate and losartan. Losartan and Lasix was stopped because of dizziness and low blood pressures and [id number] medications were stopped because she was taking lot of Tums and Pepto-Bismols. She also found with deficiency of thiamine, folic acid which is taking them,As per daughter, there was no recent fever, chills. She has no cough, no nausea, no complaints of any diarrhea. She is eating okay and otherwise she is ambulating okay before this incident happened and her only complaint is that she complaints of low back pain, shoulder pain, headaches and generalized body aches from her arthitis. Admission Exam Per Admitting Provider GENERAL: The patient is drowsy but when awake, she is able to move her extremities. VITAL SIGNS: Temperature afebrile, pulse 90, respiratory rate 20, blood pressure 175/92, oxygen 97% on room air. HEENT: Atraumatic. Could not examine the eyes. NECK: Seems supple, no neck masses seen. CARDIOVASCULAR: S1, S2 heard, regular rate and rhythm. RESPIRATORY SYSTEM: Normal AP diameter. No accessory muscle use. No wheezing, no crackles. ABDOMEN: Soft, bowel sounds present. No distention. CENTRAL NERVOUS SYSTEM: Drowsy. Moves extremities. EXTREMITIES: No edema, no erythema seen. Principal Diagnosis Altered mental status: HTN Right shoulder Right hip pain History of thiamine and folic deficiency Gastroesophageal reflux disease: Alzheimer dementia. Discharge Exam General- No acute distress Head- atraumatic Eyes- PERRL, EOMI, ENT- Decrease hearing function Neck- supple, no JVD Lungs- clear to auscultation Heart- regular rhythm; no murmur Abdomen- normal bowel sounds, soft, nontender Extremities- no calf tenderness Neuro- alert, oriented x 3; PERRL, EOMI; no facial palsy; no dysarthria Skin- warm & dry Discharge Data Allergies Allergy/AdvReac Type Severity Reaction Status Date / Time lisinopril Allergy Severe Swelling Verified 05/20/20 00:45 of Lip/Tongue/Throat adhesive tape Allergy Intermediate Rash Verified 05/20/20 00:45 fluoxetine [From Prozac] Allergy Intermediate Unknown Verified 05/20/20 00:45 lactose Allergy Intermediate Gastrointestinal Verified 05/20/20 00:45 Upset Consultations 05/20/20 00:55 ED Decision to Admit Stat 05/20/20 03:41 Consult Case Management - Discharge Planning Routine 05/20/20 08:00 Consult Neurology Routine Consult Psychiatry Routine Ordered Studies 05/19/20 23:20 CT head/brain wo con Urgent 05/20/20 01:45 MR brain wo con Routine HEAD CT NONCONTRAST CT DOSE: 1228.53 mGy.cm HISTORY: AMS, contusion on face TECHNIQUE: Multiaxial CT images of the head were performed without the use of intravenous contrast. Automated exposure control was utilized for this study. A dose lowering technique was utilized adhering to the principles of ALARA. Comparison: None. Findings: The paranasal sinuses and mastoid air cells are clear. The calvarium and skull base are intact. There is no mass, hematoma, midline shift, acute infarct. White matter hypodensity is nonspecific but suggestive of microvascular ischemic change. The ventricles and sulci demonstrate mild age-related involutional changes. Impression: No acute intracranial abnormality. Atrophy and microvascular ischemic changes. ACT 112: Negative or not required by law. Electronically signed by: Marcus Cordero M.D. 05/20/2020 7:13 AM Dictated: 05/20/20710 Transcribed: 05/20/20710 XR chest 1V portable CLINICAL HISTORY: weakness dyspnea COMPARISON STUDY: No previous studies for comparison. FINDINGS: The bones soft tissues and hemidiaphragms are normal. The cardiomediastinal silhouette is normal. The lungs are clear. The pulmonary vasculature is normal. IMPRESSION: Negative chest. ACT 112: Negative or not required by law. The above report was generated using voice recognition software. It may contain grammatical, syntax or spelling errors. Electronically signed by: Alexander Murguia M.D. 05/20/2020 7:20 AM Dictated: 05/20/20719 Transcribed: 05/20/20719 MR brain wo con HISTORY: AMS/Agitation. etiology? TECHNIQUE: Multiplanar multisequence MRI of the brain was performed without the use of contrast. COMPARISON STUDY: None. FINDINGS: Limited study as the patient could not tolerate the entire procedure. Diffusion images show no evidence for an acute ischemic insult. Findings of generalized atrophy as well as generalized chronic small vessel change of aging. Ventricular system is midline. Internal auditory canals are unremarkable. IMPRESSION: Limited study showing no evidence for an acute ischemic process. Age-related atrophy and chronic small vessel change. ACT 112: Negative or not required by law. The above report was generated using voice recognition software. It may contain grammatical, syntax or spelling errors. Electronically signed by: Alexander Murguia M.D. 05/20/2020 11:29 AM Dictated: 05/20/20 0643 Transcribed: 05/20/20 0646 RIGHT SHOULDER 3 VIEWS CLINICAL HISTORY: Right shoulder pain. FINDINGS: 3 views of the right shoulder are obtained. No prior studies are available for comparison at the time of dictation. The skeletal structures are osteopenic. No fracture or dislocation is identified. Productive degenerative change is seen at the acromioclavicular joint. Advanced osteoarthritic change is seen the glenohumeral articulation. Superior subluxation of the humeral head suggests chronic rotator cuff injury. Soft tissue edema and a bulge is seen superior to the acromioclavicular joint. The visualized right lung parenchyma appears clear. IMPRESSION: 1. No acute bony abnormality is identified. 2. Osteopenia and degenerative change as above. 3. Soft tissue edema and a bulge is seen at superior to the AC joint. Clinical correlation will be required. Electronically signed by: Hemant Paula M.D. 05/20/2020 9:02 PM Dictated: 05/20/202099 Transcribed: 05/20/202099 SINGLE VIEW PELVIS; 2 VIEWS RIGHT HIP CLINICAL HISTORY: Atraumatic right hip pain. FINDINGS: An AP view of the pelvis with AP and frog-leg views of the right hip are obtained. No prior studies are available for comparison at the time of dictation. The skeletal structures are osteopenic. There is no radiographic evidence of fracture involving the hips or bony pelvis. Mild degenerative joint space narrowing is seen in both hips. Degenerative sclerosis is noted in the sacroiliac joints and pubic symphysis. Lumbosacral spondylosis is partially visualized. The overlying soft tissues are normal as imaged. Numerous phleboliths are seen in the pelvis. IMPRESSION: 1. No acute bony abnormality is seen involving the hips or pelvis. 2. Osteopenia and degenerative change as above. Electronically signed by: Hemant Paula M.D. 05/20/2020 9:00 PM Dictated: 05/20/202058 Transcribed: 05/20/202058 Hospital Course (1) Altered mental status: Present o admission with confusion and agitation Mostly due to metabolic encephalopathy in the setting of dehydration, acute katie al failure CT head showed no acute intracranial abnormality. MRI brain showed no evidence for an acute ischemic process. Received IV hydration Neuro consulted recommended to continue thiamine and folic acid No further neuro testing Psych consulted Symptoms less likely to be related with a primary psychiatric disorder as per psych No additional psychiatric recommendations at this time. Continue to avoid any Benzo Resolved HTN BP stable Continue metoprolol 50mg daily Continue monitor BP Right shoulder Right hip pain X-ray of shoulder right hip and pelvis: Moderate DJD Daughter updated patient had diagnosis of arthritis which has been chronic ongoing Received physical therapy as an outpatient History of thiamine and folic deficiency Continue oral supplements Gastroesophageal reflux disease: Continue omeprazole. Alzheimer dementia. Continue Aricept. CODE STATUS: Full code Disposition discharge home today with home health services Continue physical and occupational therapy Total Time Total Time Spent Total Time Spent (In Minutes): 35 minutes Total Time Includes: Examination of the Patient, Discharge Planning, Medication Reconciliation, Communication With Other Providers and Other Discharge Plan Discharge Items Patient Disposition: Home - Home Health Services Reason For Visit: AMS Discharge Diagnosis: Altered mental status: Hypertension Right shoulder Right hip pain History of thiamine and folic deficiency Gastroesophageal reflux disease: Alzheimer dementia. Activity: Resume your previous activity Non-emergency contact: Primary Care Provider Call non-emergency contact if: you have any medication questions Follow-up/Referrals: Jason Medina V., [Primary Care Provider] - Diet: Heart Healthy Addtl Attending Provider Instructions: Follow up with your primary care provider Dr. Medina on 05/31 @ 3:40 PM Continue physical and occupational therapy Fall precaution Please keep patient awake and active during the day, with light on in her room. Conversely, dark room should be maintained at night with sleep being encouraged. Pending Studies at Discharge: No Stand-Alone Forms: My [employer], Smoking Cessation Medications and DC Order Prescriptions: New acetaminophen 325 mg Tablet 650 mg PO Q8H PRN (Reason: pain) Qty: 30 RF: 0 Certavite-Antioxidant 18-400 mg-mcg Tablet 1 tab PO QAM Qty: 30 RF: 0 Continued metoprolol succinate 50 mg tablet extended release 24 hr 50 mg PO DAILY RF: 0 donepezil 10 mg tablet 10 mg PO DAILY RF: 0 omeprazole 20 mg capsule,delayed release(DR/EC) 20 mg PO DAILY RF: 0 thiamine HCl (vitamin B1) 100 mg Tablet 100 mg PO DAILY RF: 0 folic acid 1 mg Tablet 1 mg PO DAILY RF: 0 rosuvastatin 20 mg tablet 20 mg PO DAILY RF: 0 Changed celecoxib 200 mg capsule 200 mg PO DAILY PRN (Reason: pain) Qty: 0 RF: 0 Discharge Orders: Discharge Order (Routine); Ordered 05/28/20 Ordered By: Santos Norris Admission Data Admit Date/Time: 05/20/20 01:43 Attending Provider: Santos Norris Admit Provider: Arsalan Calhoun Primary Care Provider: Jason Medina V. Other Providers: Arsalan Calhoun ; Quin Tee ; Douglas Tinoco Kathleen ; Jamey Leonardo ; Padmini Renteria ; Esha Pichardo ; [facility] Other Interventions: Discharge Summary Assessment (RN) Last Done: 05/28/20 10:51
== END 2020-05-28 13:01 | disposition home health service (06) | DRG 682 ==
LOC: ED 22:55 → SUATTDRO 05-20 01:43 → 2N 05-20 01:43 → 3E 05-27 00:28